=== PATIENT | male | born 1985 | race Caucasian/White ===

== ENCOUNTER 2016-04-08 11:41 | Emergency (ER) | payer BC | END 2016-04-08 14:06 | disposition home or self-care (01) | LOC: ER 11:41 | PROC: 0Y960ZZ Drainage of Left Inguinal Region, Open Approach (ICD-10-PCS; principal; 2016-04-08) | PROC: 0Y9K0ZZ Drainage of Right Ankle Region, Open Approach (ICD-10-PCS; 2016-04-08) | DX: L02.415 Cutaneous abscess of right lower limb (principal); L02.214 Cutaneous abscess of groin | CPT/HCPCS: 87070; 87077; 87186; 87205; 90471; 90714; 99283; A9270-GY ==